=== PATIENT | male | born 1995 | race Caucasian/White ===

== ENCOUNTER 2021-06-05 21:46 | Inpatient (IN) | payer MEDICAID ==
[~2021-06-05] VITALS: Ht 182.9 cm; Wt 66.0 kg
[~2021-06-05 21:46] MED LIST: NO HOME MEDS
[2021-06-05] MEDS ORDERED: normal saline 1000ML IV soln IV ONE (22:20)
[2021-06-05] MEDS ORDERED: fentaNYL/PF 50MCG/1 ML 2ML syringe IV ONE (22:20)
[2021-06-05] MEDS ORDERED: CefTRIAXone 2gm/D5W 50ml BAG 50 ML IV ONE (22:20)
[2021-06-05] MEDS ORDERED: ondansetron/PF 4mg/2ml inj IV ONE (22:20)
[2021-06-05 22:34] LABS: BASOPHILS % (AUTO) 0.2 % (0-1); EOSINOPHILS % (AUTO) 0.1 % (0-6); HEMATOCRIT 47.3 % (42.0-52.0); LYMPHOCYTES # (AUTO) 0.5 X10'3 (1.1-4.8); LYMPHOCYTES % (AUTO) 2.2 % (21-51); MEAN CORPUSCULAR HEMOGLOBIN 30.9 PG (27.0-31.0); MEAN CORPUSCULAR HGB CONC 33.8 g/dL (33.0-36.5); MEAN CORPUSCULAR VOLUME 91.3 FL (78-98); MEAN PLATELET VOLUME 8.5 FL (7.4-10.4); MONOCYTES # (AUTO) 1.2 X10'3 (0-0.9); MONOCYTES % (AUTO) 5.6 % (2-12); NEUTROPHILS # (AUTO) 19.3 X10'3 (1.8-7.7); NEUTROPHILS % (AUTO) 91.9 % (42-75); PLATELET COUNT 381 X10'3 (140-440); RED BLOOD COUNT 5.18 X10'6 (4.70-6.10); RED CELL DISTRIBUTION WIDTH 13.9 % (11.5-14.5); WHITE BLOOD COUNT 21.1 X10'3 (4.5-11.0)
[2021-06-05 22:42] LABS: ALANINE AMINOTRANSFERASE 31 U/L (12-78); ALBUMIN 4.9 G/DL (3.4-5.0); ALBUMIN/GLOBULIN RATIO 1.3 (1.1-1.5); ALKALINE PHOSPHATASE 74 IU/L (46-116); ANION GAP 19 (8-16); ASPARTATE AMINO TRANSFERASE 22 U/L (10-37); BILIRUBIN,TOTAL 1.2 MG/DL (0.1-1.0); BLOOD UREA NITROGEN 24 MG/DL (7-18); BUN/CREATININE RATIO 22.4 (5.4-32.0); CALCIUM 10.2 MG/DL (8.5-10.1); CHLORIDE 100 MMOL/L (99-107); CREATININE 1.07 MG/DL (0.60-1.10); GLUCOSE 207 MG/DL (70-104); LIPASE 56 U/L (73-393); POTASSIUM 5.1 MMOL/L (3.5-5.1); SODIUM 139 MMOL/L (135-145); TOTAL CARBON DIOXIDE 20.2 MMOL/L (24-32); TOTAL PROTEIN 8.6 G/DL (6.4-8.2); eGFR 85 ML/MIN
[2021-06-05] MEDS ORDERED: normal saline 1000ML IV soln IVB ONE (23:10)
[2021-06-05] MEDS ORDERED: piperacillin/tazo 3.375gm/50ml 50 ML IV ONE (23:20)
[2021-06-06] MEDS ORDERED: HYDROmorphone 1 mg/ml syringe IV ONE (00:05)
[2021-06-06] MEDS ORDERED: iohexol 350MG/ML 100ml bottle IV ONE (00:12)
[2021-06-06] MEDS ORDERED: ondansetron/PF 4mg/2ml inj IV ONE (00:15)
[2021-06-06] MEDS ORDERED: normal saline 1000ml 1,000 ML IV ONE ×2 (00:15→00:45)
[2021-06-06] MEDS: normal saline 1000ml 1,000 ML IV SCH ×4 (00:35→17:17)
[2021-06-06] MEDS ORDERED: magnesium 2GM in 50ml NS 50 ML IV PRN (00:35)
[2021-06-06] MEDS ORDERED: mag hydrox/Alum hydrox/simeth 30ml oral suspension PO PRN (00:35)
[2021-06-06] MEDS ORDERED: magnesium 4gm in 100ml NS 100 ML IV PRN (00:35)
[2021-06-06] MEDS ORDERED: acetaminophen 325mg tablet PO PRN (00:35)
[2021-06-06] MEDS ORDERED: potassium Cl 20 mEq SR tablet PO PRN ×2 (00:35)
[2021-06-06] MEDS ORDERED: magnesium Cl slow-release 64mg tablet PO PRN (00:35)
[2021-06-06] MEDS ORDERED: potassium CL 10mEq/100ml bag 100 ML IV PRN (00:35)
[2021-06-06] MEDS ORDERED: magnesium hydroxide 30ml (MOM) UD suspension PO PRN (00:35)
--- NOTE | 2021-06-06 01:18 | NUR ---
[facility] EVALUATED PATIENT FOLLOWING CT W/CONTRAST. ADVISED TO HOLD OFF ON NG TUBE PLACEMENT.
[2021-06-06 02:05] LABS: CLARITY,URINE CLEAR (Clear); COLOR,URINE YELLOW (Yellow); GLUCOSE, URINE NEGATIVE (Neg); KETONES,URINE 40 mg/dl (Neg); LEUKOCYTE ESTERASE ,URINE NEGATIVE (Neg); NITRITES, URINE NEGATIVE (Neg); OCCULT BLOOD,URINE NEGATIVE (Neg); PH,URINE 8.5 (4.8-8.0); PROTEIN,URINE TRACE mg/dl (Neg); UROBILINOGEN,URINE 0.2 E.U/dL (0.2-1.0)
[2021-06-06 02:06] LABS: UA COLLECTION TYPE URINAL
[2021-06-06 02:12] LABS: BACTERIA,URINE NONE SEEN /HPF (Neg); MUCUS STRANDS MANY /LPF (Neg); RBC,URINE NONE SEEN /HPF (0-2); SQUAMOUS EPITHELIAL CELL,UR NONE SEEN /LPF (FEW); WBC,URINE 0-4 /HPF (0-4)
--- NOTE | 2021-06-06 02:35 | NUR ---
Patient in room ED 7. I have received report from SARA PATEL in ER and had the opportunity to ask questions and will assume patient care.
[2021-06-06 03:00] VITALS: BP 126/68
[2021-06-06] MEDS: HYDROmorphone inj. 0.5 MG/0.5 ML DISP.SYRIN IV PRN ×3 (05:57→18:45)
[2021-06-06] MEDS: ondansetron/PF 4mg/2ml inj IV PRN ×2 (06:09→18:51)
[2021-06-06 06:15] LABS: APTT 25 SECONDS (22-32)
--- NOTE | 2021-06-06 06:31 | NUR ---
Problems reprioritized. Patient report given, questions answered & plan of care reviewed with AMANUEL PATEL.
[2021-06-06 06:37] LABS: MAGNESIUM 1.8 MG/DL (1.5-2.4); POTASSIUM 4.7 MMOL/L (3.5-5.1)
[2021-06-06 08:00] VITALS: BP 121/49
[2021-06-06] MEDS: K and/or MAG REPLACEMENT MC SCH ×2 (08:00→20:00)
[2021-06-06] MEDS ORDERED: docusate sod 100mg capsule PO SCH (08:00)
[2021-06-06 08:51] LABS: BASOPHILS % (AUTO) 0.2 % (0-1); EOSINOPHILS % (AUTO) 0 % (0-6); HEMATOCRIT 41.3 % (42.0-52.0); HEMOGLOBIN 13.7 g/dl (14.0-17.9); LYMPHOCYTES # (AUTO) 0.5 X10'3 (1.1-4.8); LYMPHOCYTES % (AUTO) 3.3 % (21-51); MEAN CORPUSCULAR HEMOGLOBIN 30.7 PG (27.0-31.0); MEAN CORPUSCULAR HGB CONC 33.3 g/dL (33.0-36.5); MEAN CORPUSCULAR VOLUME 92.3 FL (78-98); MEAN PLATELET VOLUME 9.3 FL (7.4-10.4); MONOCYTES # (AUTO) 0.5 X10'3 (0-0.9); MONOCYTES % (AUTO) 3.4 % (2-12); NEUTROPHILS # (AUTO) 14.9 X10'3 (1.8-7.7); NEUTROPHILS % (AUTO) 93.1 % (42-75); PLATELET COUNT 316 X10'3 (140-440); RED BLOOD COUNT 4.48 X10'6 (4.70-6.10)
[2021-06-06] MEDS: piperacillin/tazo 4.5gm/100ml 100 ML IV SCH ×2 (09:48→16:21)
[2021-06-06] MEDS ORDERED: pneumococcal 23-VAL P-sac vacc 25 mcg/0.5ml vial IMVAC ONE (10:00)
[2021-06-06] MEDS ORDERED: FLU VACC QS2021-22(6MOS UP)/PF 60 MCG/0.5 ML SYRINGE IM ONE (10:00)
[2021-06-06 10:03] LABS: C DIFF SPECIMEN=DIARRHEA? ACCEPTABLE; C DIFFICILE TOXINS A&B NEGATIVE (Neg)
[2021-06-06 10:22] LABS: ALANINE AMINOTRANSFERASE 26 U/L (12-78); ALBUMIN 3.7 G/DL (3.4-5.0); ALBUMIN/GLOBULIN RATIO 1.2 (1.1-1.5); ALKALINE PHOSPHATASE 51 IU/L (46-116); ANION GAP 17 (8-16); ASPARTATE AMINO TRANSFERASE 16 U/L (10-37); BILIRUBIN,TOTAL 0.8 MG/DL (0.1-1.0); BLOOD UREA NITROGEN 21 MG/DL (7-18); BUN/CREATININE RATIO 26.6 (5.4-32.0); CALCIUM 8.1 MG/DL (8.5-10.1); CHLORIDE 108 MMOL/L (99-107); CREATININE 0.79 MG/DL (0.60-1.10); GLUCOSE 122 MG/DL (70-104); SODIUM 143 MMOL/L (135-145); TOTAL CARBON DIOXIDE 17.9 MMOL/L (24-32); TOTAL PROTEIN 6.7 G/DL (6.4-8.2); eGFR > 90 ML/MIN
--- NOTE | 2021-06-06 11:17 | NUR ---
Unable to get medical records from [facility] today being a Monday they are unavailable but misc. order is in for reminder and assistant community director aware of need to get these records in the AM.
[2021-06-06 12:14] VITALS: BP 119/64
[2021-06-06] MEDS ORDERED: oxyCODONE/APAP 5-325mg tablet PO PRN (13:50)
[2021-06-06] MEDS ORDERED: oxyCODONE/APAP 10/325mg tablet PO PRN (13:50)
[2021-06-06 18:00] VITALS: BP 86/62
--- NOTE | 2021-06-06 18:45 | NUR ---
Patient in room EJ 345. I have received report from AMANDA [place] and had the opportunity to ask questions and assume patient care.
--- NOTE | 2021-06-06 18:49 | NUR ---
Report given to Francoise PATEL, all questions answered. Pt given dilaudid for increased pain and zofran for slight nausea.
[2021-06-06 20:50] VITALS: BP 95/49
[2021-06-06] MEDS ORDERED: CefTRIAXone 2gm/D5W 50ml BAG 50 ML IV SCH (22:00)
[2021-06-07] VITALS: BP 113/68
[2021-06-07] MEDS: piperacillin/tazo 4.5gm/100ml 100 ML IV SCH ×2 (00:36→07:44)
[2021-06-07] MEDS: normal saline 1000ml 1,000 ML IV SCH ×2 (00:36→07:44)
[2021-06-07 01:10] VITALS: BP 134/62
--- NOTE | 2021-06-07 01:17 | NUR ---
Pt stated he has no had any output since start of this shift but two episodes of diarrhea. Scanned bladder and he had 6cc. Called Dr. Benites to make him aware and he said to " keep an eye on it" no new orders at this time.
[2021-06-07 02:47] VITALS: BP 119/63
--- NOTE | 2021-06-07 05:55 | NUR ---
Pt voided total of 500cc.
--- NOTE | 2021-06-07 06:11 | NUR ---
Patient in room EJ 345. I have received report from AMANDA Owusu and had the opportunity to ask questions and assume patient care.
[2021-06-07 06:39] LABS: BASOPHILS % (AUTO) 0.4 % (0-1); EOSINOPHILS # (AUTO) 0.2 X10'3 (0-0.9); EOSINOPHILS % (AUTO) 3.5 % (0-6); HEMATOCRIT 35.8 % (42.0-52.0); HEMOGLOBIN 12.2 g/dl (14.0-17.9); LYMPHOCYTES # (AUTO) 1.7 X10'3 (1.1-4.8); LYMPHOCYTES % (AUTO) 23.8 % (21-51); MEAN CORPUSCULAR HEMOGLOBIN 31.7 PG (27.0-31.0); MEAN CORPUSCULAR HGB CONC 34.2 g/dL (33.0-36.5); MEAN CORPUSCULAR VOLUME 92.6 FL (78-98); MEAN PLATELET VOLUME 8.1 FL (7.4-10.4); MONOCYTES # (AUTO) 0.8 X10'3 (0-0.9); MONOCYTES % (AUTO) 10.9 % (2-12); NEUTROPHILS # (AUTO) 4.3 X10'3 (1.8-7.7); NEUTROPHILS % (AUTO) 61.4 % (42-75); PLATELET COUNT 270 X10'3 (140-440); RED BLOOD COUNT 3.87 X10'6 (4.70-6.10)
--- NOTE | 2021-06-07 06:47 | NUR ---
Patient in room EJ 345. I have received report from AMANDA Owusu and had the opportunity to ask questions and assume patient care.
[2021-06-07 07:00] VITALS: BP 114/56
--- NOTE | 2021-06-07 07:18 | NUR ---
Problems reprioritized. Patient report given, questions answered & plan of care reviewed with AMANDA Mcnair.
[2021-06-07 07:27] LABS: ALANINE AMINOTRANSFERASE 23 U/L (12-78); ALBUMIN 2.9 G/DL (3.4-5.0); ALBUMIN/GLOBULIN RATIO 1.1 (1.1-1.5); ALKALINE PHOSPHATASE 43 IU/L (46-116); ANION GAP 9 (8-16); ASPARTATE AMINO TRANSFERASE 20 U/L (10-37); BILIRUBIN,TOTAL 0.4 MG/DL (0.1-1.0); BLOOD UREA NITROGEN 12 MG/DL (7-18); BUN/CREATININE RATIO 14.3 (5.4-32.0); CALCIUM 7.6 MG/DL (8.5-10.1); CHLORIDE 108 MMOL/L (99-107); CREATININE 0.84 MG/DL (0.60-1.10); GLUCOSE 91 MG/DL (70-104); POTASSIUM 4.2 MMOL/L (3.5-5.1); SODIUM 141 MMOL/L (135-145); TOTAL CARBON DIOXIDE 23.8 MMOL/L (24-32); TOTAL PROTEIN 5.6 G/DL (6.4-8.2); eGFR > 90 ML/MIN
[2021-06-07] MEDS: ondansetron/PF 4mg/2ml inj IV PRN (07:44)
[2021-06-07] MEDS: K and/or MAG REPLACEMENT MC SCH (07:47)
[2021-06-07] MEDS ORDERED: pneumococcal 23-VAL P-sac vacc 25 mcg/0.5ml vial IMVAC ONE (11:15)
[2021-06-07] MEDS ORDERED: FLU VACC QS2021-22(6MOS UP)/PF 60 MCG/0.5 ML SYRINGE IM ONE (11:15)
--- NOTE | 2021-06-07 11:50 | NUR ---
Dr. Sheth aware unable to obtain medical records from [facility] from [place] as it was the weekend and today is a holiday.
[2021-06-07 12:16] VITALS: BP 118/71
[2021-06-07] MEDS ORDERED: ONDA4TAB12 PO (12:31)
[2021-06-07] MEDS ORDERED: PER5325T PO (12:31)
--- NOTE | 2021-06-07 12:58 | NUR ---
Patient A&O in no apparent acute distress at this time. Discussed with patient discharge instructions and new prescriptions. Give patient opportunity for any questions and patient states no questions. Patient ready for dc and is awaiting for his personal transportation home.
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
== END 2021-06-07 13:34 | disposition home or self-care (01) | DRG 720 ==
LOC: ER 21:46 → ED HOLD 06-06 00:38 → SUR 3N 06-06 03:10
PROVIDERS: ADMIT Internal Medicine; ATTEND Family Medicine
PROC: B4201ZZ Computerized Tomography (CT Scan) of Abdominal Aorta using Low Osmolar Contrast (ICD-10-PCS; 2021-06-06)
PROC: B4241ZZ Computerized Tomography (CT Scan) of Superior Mesenteric Artery using Low Osmolar Contrast (ICD-10-PCS; 2021-06-06)
PROC: B4281ZZ Computerized Tomography (CT Scan) of Bilateral Renal Arteries using Low Osmolar Contrast (ICD-10-PCS; 2021-06-06)
PROC: B42C1ZZ Computerized Tomography (CT Scan) of Pelvic Arteries using Low Osmolar Contrast (ICD-10-PCS; 2021-06-06)
PROC: B42H1ZZ Computerized Tomography (CT Scan) of Bilateral Lower Extremity Arteries using Low Osmolar Contrast (ICD-10-PCS; 2021-06-06)
PROC: B4211ZZ Computerized Tomography (CT Scan) of Celiac Artery using Low Osmolar Contrast (ICD-10-PCS; 2021-06-06)
PROC: 3E0234Z Introduction of Serum, Toxoid and Vaccine into Muscle, Percutaneous Approach (ICD-10-PCS; principal; 2021-06-07)
PROC: 3E02340 Introduction of Influenza Vaccine into Muscle, Percutaneous Approach (ICD-10-PCS; 2021-06-07)
DX: A41.9 Sepsis, unspecified organism (principal); K65.9 Peritonitis, unspecified; E87.2 Acidosis; I77.4 Celiac artery compression syndrome; J18.9 Pneumonia, unspecified organism; J40 Bronchitis, not specified as acute or chronic; A08.4 Viral intestinal infection, unspecified; Z20.822 Contact with and (suspected) exposure to COVID-19; F12.90 Cannabis use, unspecified, uncomplicated; Z90.81 Acquired absence of spleen; Z23 Encounter for immunization
CPT/HCPCS: 36415; 71045; 71275; 74176; 80053; 81001; 83605; 83690; 83735; 84145; 85025; 85610; 85730; 87040; 87081; 87324; 87449; 87635; 90732; 99285; G0378; J0696; J1170; J2405; J2543; J3010; J7030; Q9967